=== PATIENT | female | born 1960 | race Hispanic/Latino ===

== ENCOUNTER → 2018-04-12 | Outpatient (CLI) | payer BC, MEDICARE ==
[~2018-04-12] MED LIST: ASPIRIN81 MG PO; CLONAZEPAM1 MG PO; CRESTOR20 MG PO; IMITREX50 MG PO; MOTRIN800 M1 PO; NEXIUM40 MG PO; PRAVASTATIN SOD40 MG PO; PROZAC40 MG PO; SEROQUEL50 MG PO; TIZANIDINE HCL4 M1 PO; ULTRAM50 MG PO
== END ==
LOC: MAMMO 08:52
PROVIDERS: ATTEND Internal Medicine
DX: Z12.31 Encounter for screening mammogram for malignant neoplasm of breast (principal)
CPT/HCPCS: 77067

== ENCOUNTER → 2019-04-16 | Outpatient (CLI) | payer BC ==
--- NOTE | 2019-04-16 11:40 | Diagnostic Imaging Report ---
EXAMINATION: Head CT HISTORY: Dizziness, shaking, vertigo, runny nose and headache with left-sided weakness. Carotid artery syndrome. COMPARISON: None. TECHNIQUE: Multidetector axial images were obtained without contrast from the foramen magnum to the vertex . The images were reconstructed using brain and bone algorithms. Thin section brain images were reformatted into coronal and sagittal planes. Image quality: Motion/streaking artifact limits the evaluation of the skull base and posterior cranial fossa. Dose modulation, iterative reconstruction, and/or weight based adjustment of the mA/kV was utilized to reduce the radiation dose to as low as reasonably achievable. FINDINGS: Parenchyma: 1. No abnormal densities. 2. No mass or hemorrhage. No CT evidence of acute territorial vascular insult. Extra-axial spaces:No abnormal density. No extra-axial fluid collections Brain volume: Normal for age. Ventricles: No hydrocephalus or displacement. Incidentally noted a small lipoma within the right atrial complexes, no clinical significance. Arteries: No density suggestive of thrombus. Dural sinuses: No abnormal density. Extra-axial spaces: No abnormal density. Foramen magnum: Narrowed, with partially visualized cerebellar tonsillar ectopia and fullness of the foramen magnum, compression upon the cervical medullary junction cannot be excluded. Sella: Enlarged, partially empty, mostly cystocele, which indicating patient with a spontaneous intracranial hypotension in the appropriate clinical setting Paranasal/mastoid sinuses: Partial opacification of the right sphenoid sinus, otherwise clear. Skull/Scalp: No lytic or blastic lesions. No fractures. IMPRESSION: 1. No acute intracranial abnormality. 2. 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 3. Partially empty sella turcica as detailed above. Signed by: Dr. Mckenzie Mike M.D. on 04/16/2019 11:36 AM
--- NOTE | 2019-04-30 08:43 | Diagnostic Imaging Report ---
#[id number] - MGSCRBIL #BILATERAL DIGITAL SCREENING MAMMOGRAM WITH CAD: 04/16/2019 Comparison is made to exams dated: 04/12/2018 mammogram and 05/17/2017 mammogram - [facility]. Current study contains 8 films. The tissue of both breasts is heterogeneously dense. This may lower the sensitivity of mammography. Current study was also evaluated with a Computer Aided Detection (CAD) system. Benign appearing calcifications are noted bilaterally and appear unchanged. There is benign, stable nodularity in both breasts. No significant masses, calcifications, or other findings are seen in either breast. IMPRESSION: BENIGN There is no mammographic evidence of malignancy. A 1 year screening mammogram is recommended. The patient will be notified by letter of the results. CONNOR mondragon/penrad:04/27/2019 13:48:25 Cheese Specialist: Taylor MARTINEZ(R)(Vito), [facility] letter sent: Normal Exam Mammogram BI-RADS: 2 Benign
== END ==
LOC: CT 10:15
PROVIDERS: ATTEND Internal Medicine
DX: Z12.31 Encounter for screening mammogram for malignant neoplasm of breast (principal); G45.1 Carotid artery syndrome (hemispheric)
CPT/HCPCS: 70450; 77067

== ENCOUNTER → 2019-07-13 | Outpatient (CLI) | payer BC ==
--- NOTE | 2019-07-13 13:56 | Diagnostic Imaging Report ---
Cervical spine, 7 views. History: Neck pain, right-sided with radiation to right shoulder. Discussion: The cervical spine is visualized on the lateral view from C1 through the top of T1 with the additional swimmer's view. There is normal lordotic curvature. There is no evidence of fracture, subluxation, or posterior splaying. The intervertebral disc spaces are normal. The neuroforamina are patent bilaterally. The prevertebral soft tissues are within normal limits. IMPRESSION: Normal cervical spine. Signed by: Efren Jung on 07/13/2019 1:53 PM
== END ==
LOC: RAD 11:58
PROVIDERS: ATTEND Internal Medicine
DX: M47.812 Spondylosis without myelopathy or radiculopathy, cervical region (principal)
CPT/HCPCS: 72050

== ENCOUNTER → 2019-09-10 | Outpatient (CLI) | payer BC ==
--- NOTE | 2019-09-10 08:43 | Diagnostic Imaging Report ---
History: Right-sided face jumpy. High blood pressure Comparison studies: CT head 04/16/2019 Technique: Sagittal T2; axial DWI, FLAIR, MPGR, T1, Coronal FLAIR. Intravenous contrast: None Findings: Scalp: Normal in signal . No masses . Bone marrow: Normal in signal intensity. Extra-axial: No masses, no fluid collections. Brain sulci: Appropriate for age. Ventricles: Normal in size. Subcentimeter fat the deposition at the right choroid plexus, most likely related to lipoma . No hydrocephalus . Parenchyma: No abnormal signal intensities. No masses, hemorrhage, acute or chronic vascular insults. Suprasellar region: Partial empty sella configuration Craniocervical junction: No abnormalities. Patent foramen magnum. No Chiari one malformation or tonsillar ectopia. Vessels: Normal flow-voids in the arteries and sinuses. Mucosal thickening at the left maxillary sinus, related to nonspecific inflammation IMPRESSION: 1. No acute abnormalities Signed by: DR Tom Pettit M.D. on 09/10/2019 8:40 AM
== END ==
LOC: MRI 07:10
PROVIDERS: ATTEND Internal Medicine
DX: G51.0 Bell's palsy (principal)
CPT/HCPCS: 70551

== ENCOUNTER → 2020-07-21 | Outpatient (CLI) | payer BC | LOC: MAMMO 13:39 | PROVIDERS: ATTEND Internal Medicine | DX: Z12.31 Encounter for screening mammogram for malignant neoplasm of breast (principal) | CPT/HCPCS: 77067 ==

== ENCOUNTER → 2021-05-05 | Outpatient (CLI) | payer BC | LOC: US 08:25 | PROVIDERS: ATTEND Internal Medicine | DX: R10.10 Upper abdominal pain, unspecified (principal) | CPT/HCPCS: 76700 ==

== ENCOUNTER → 2021-07-27 | Outpatient (CLI) | payer BC | LOC: MAMMO 09:07 | PROVIDERS: ATTEND Internal Medicine | DX: Z12.31 Encounter for screening mammogram for malignant neoplasm of breast (principal) | CPT/HCPCS: 77067 ==

== ENCOUNTER → 2022-11-18 | Outpatient (CLI) | payer BC | LOC: MAMMO 08:53 | PROVIDERS: ATTEND Internal Medicine | DX: N64.4 Mastodynia (principal); Z13.820 Encounter for screening for osteoporosis; M85.80 Other specified disorders of bone density and structure, unspecified site | CPT/HCPCS: 77066; 77080 ==

== ENCOUNTER 2023-03-02 03:29 | Emergency (ER) | payer BC ==
[~2023-03-02] VITALS: Ht 185.4 cm; Wt 111.6 kg
[~2023-03-02 03:29] MED LIST changes: +FAMOTIDINE20 MG PO; +LIPITOR10 MG PO; +LOSARTAN POTASS25 MG PO; +METFORMIN HCL500 MG PO; +OMEPRAZOLE40 MG PO
[2023-03-02] MEDS ORDERED: ONDANSETRON HCL INJ 2MG/ML 2ML 2 MG/ML VIAL IV STA (03:44)
[2023-03-02] MEDS ORDERED: Morphine 4mg INJECTION 4 MG/ML INJ IV STA (03:44)
[2023-03-02 03:56] LABS: CLARITY,URINE CLEAR (CLEAR); COLOR,URINE YELLOW (YELLOW); KETONES,URINE NEGATIVE (NEGATIVE); LEUKOCYTE ESTERASE ,URINE NEGATIVE (NEGATIVE); NITRITE,URINE NEGATIVE (NEGATIVE); PROTEIN,URINE DIPSTICK NEGATIVE (NEGATIVE); URINE UROBILINOGEN 0.2 mg/dL (0.2 - 1)
[2023-03-02 03:57] LABS: BASOPHILS % 0.4 % (0.0-1.0); EOSINOPHILS # (AUTO) 0.2 (0.0-0.4); HEMOGLOBIN 13.5 g/dL (12.0-16.0); LYMPHOCYTES # (AUTO) 1.7 (1.0-3.2); LYMPHOCYTES % 32.5 % (18.0-39.1); MEAN CORPUSCULAR HEMOGLOBIN 29.9 pg (28-32); MEAN CORPUSCULAR HGB CONC 33.8 g/dL (31-35); MEAN CORPUSCULAR VOLUME 88.5 fL (81-99); MONOCYTES # (AUTO) 0.4 (0.2-0.8); MONOCYTES % 7.7 % (4.4-11.3); PLATELET COUNT 121 x10e3/uL (140-360); RED BLOOD COUNT 4.52 x10e6/uL (3.6-5.1); RED CELL DISTRIBUTION WIDTH 13.2 % (11.7-14.4)
[2023-03-02 04:09] LABS: BACTERIA,URINE MODERATE /HPF; EPITHELIAL CELLS,URINE FEW /LPF; RBC,URINE 0-5 /HPF (0-5)
[2023-03-02 04:17] LABS: ALBUMIN/GLOBULIN RATIO 1.1 (0.8-2.0); ANION GAP 14.6 mmol/L (8-16); CALCIUM 9.7 mg/dL (8.4-10.2); CREATININE, SERUM 0.74 mg/dL (0.57-1.11); POTASSIUM 3.6 mmol/L (3.5-5.1)
[2023-03-02] MEDS ORDERED: IOPAMIDOL 370 MG/ML 100 ML INFUS..BTL INJ ONE (04:32)
[2023-03-02] MEDS ORDERED: FAMOTIDINE 20 MG/2 ML VIAL IV STA (05:15)
[2023-03-02] MEDS ORDERED: PROTONIX20 MG PO (05:17)
[2023-03-02] MEDS ORDERED: ULTRAM 50MG50 MG PO (05:42)
[2023-03-02 05:45] VITALS: O2SAT 98
[2023-03-02 05:51] LABS: CREATINE KINASE 49 IU/L (29-168)
== END 2023-03-02 05:55 | disposition home or self-care (01) ==
LOC: ER 03:35
DX: R10.32 Left lower quadrant pain (principal); R10.12 Left upper quadrant pain; F41.9 Anxiety disorder, unspecified; E78.5 Hyperlipidemia, unspecified; K21.9 Gastro-esophageal reflux disease without esophagitis; R94.31 Abnormal electrocardiogram [ECG] [EKG]
CPT/HCPCS: 36415; 74177; 80053; 81001; 82550; 82553; 83690; 84484; 85025; 93005; 99284; J2270; J2405; Q9967

== ENCOUNTER 2023-09-15 03:55 | Emergency (ER) | payer BC ==
[~2023-09-15] VITALS: Ht 185.4 cm; Wt 111.6 kg
[~2023-09-15 03:55] MED LIST changes: +MECLIZINE HCL12.5 MG PO; +PROTONIX20 MG PO; +ULTRAM 50MG50 MG PO
[2023-09-15] MEDS ORDERED: SODIUM CHLORIDE 0.9% 1000ML 1,000 ML IV STA (04:22)
[2023-09-15] MEDS ORDERED: ONDANSETRON HCL INJ 2MG/ML 2ML 2 MG/ML VIAL IV STA (04:22)
[2023-09-15 04:48] LABS: BASOPHILS % 0.3 % (0.0-1.0); EOSINOPHILS # (AUTO) 0.1 (0.0-0.4); EOSINOPHILS % 2.5 % (0.0-6.0); HEMATOCRIT 36.8 % (34.2-44.1); HEMOGLOBIN 12.3 g/dL (12.0-16.0); LYMPHOCYTES # (AUTO) 0.9 (1.0-3.2); LYMPHOCYTES % 25.5 % (18.0-39.1); MEAN CORPUSCULAR HEMOGLOBIN 28.9 pg (28-32); MEAN CORPUSCULAR HGB CONC 33.4 g/dL (31-35); MEAN CORPUSCULAR VOLUME 86.6 fL (81-99); MONOCYTES # (AUTO) 0.3 (0.2-0.8); MONOCYTES % 7.2 % (4.4-11.3); NEUTROPHILS # (AUTO) 2.3 (2.1-6.9); NEUTROPHILS % 64.2 % (38.7-80.0); RED BLOOD COUNT 4.25 x10e6/uL (3.6-5.1); RED CELL DISTRIBUTION WIDTH 13.4 % (11.7-14.4); WHITE BLOOD COUNT 3.61 x10e3/uL (4.8-10.8)
[2023-09-15 04:56] LABS: PLATELET COUNT 92 x10e3/uL (140-360)
[2023-09-15 05:08] LABS: ALBUMIN/GLOBULIN RATIO 1.4 (0.8-2.0); BILIRUBIN,TOTAL 0.8 mg/dL (0.2-1.2); CALCIUM 8.8 mg/dL (8.4-10.2); CREATININE, SERUM 0.78 mg/dL (0.57-1.11); TOTAL PROTEIN 6.9 g/dL (6.5-8.1)
[2023-09-15 05:14] LABS: CLARITY,URINE CLEAR (CLEAR); COLOR,URINE YELLOW (YELLOW); PH,URINE 7 (5 - 7)
[2023-09-15 05:15] LABS: BILIRUBIN,URINE NEGATIVE (NEGATIVE); GLUCOSE, URINE 500 (NEGATIVE); KETONES,URINE NEGATIVE (NEGATIVE); LEUKOCYTE ESTERASE ,URINE NEGATIVE (NEGATIVE); NITRITE,URINE NEGATIVE (NEGATIVE); PROTEIN,URINE DIPSTICK NEGATIVE (NEGATIVE); URINE UROBILINOGEN 0.2 mg/dL (0.2 - 1)
[2023-09-15 05:30] LABS: BACTERIA,URINE RARE /HPF; EPITHELIAL CELLS,URINE RARE /LPF; WBC,URINE (MAN) 0-5 /HPF (0-5)
[2023-09-15] MEDS ORDERED: PROMETHAZINE 25MG/ NS 50ML (IV) IV STA (05:47)
[2023-09-15] MEDS ORDERED: PROMETHAZINE 25MG/SOD CHL 0.9% 50 ML IV ONE (06:00)
[2023-09-15 06:59] VITALS: BP 160/84; PULSE 79; RESP 19; TEMP 98.8; O2SAT 96
[2023-09-15] MEDS ORDERED: DICYCLOMINE HCL20 MG PO (07:00)
[2023-09-15] MEDS ORDERED: PROMETHAZINE HC25 M1 PO (07:01)
[2023-09-15] MEDS ORDERED: IOPAMIDOL 370 MG/ML 100 ML INFUS..BTL INJ ONE (07:15)
== END 2023-09-15 07:11 | disposition home or self-care (01) ==
LOC: ER 04:02
DX: R10.30 Lower abdominal pain, unspecified (principal); R11.2 Nausea with vomiting, unspecified; E78.5 Hyperlipidemia, unspecified; F41.9 Anxiety disorder, unspecified; E66.01 Morbid (severe) obesity due to excess calories
CPT/HCPCS: 36415; 70450; 74177; 80053; 81001; 83690; 85025; 93005; 99284; J2405; J2550; J7030; Q9967

== ENCOUNTER → 2024-02-10 | Outpatient (REF) | payer BC, MEDICARE ==
[~2024-02-10] MED LIST changes: +DICYCLOMINE HCL20 MG PO; +PROMETHAZINE HC25 M1 PO
== END ==
LOC: MAMMO 14:09
PROVIDERS: ATTEND Internal Medicine
DX: Z12.31 Encounter for screening mammogram for malignant neoplasm of breast (principal)
CPT/HCPCS: 77067

== ENCOUNTER 2024-07-27 20:42 | Observation (INO) | payer BC, MEDICARE ==
[~2024-07-27] VITALS: Ht 154.9 cm; Wt 100.2 kg
[2024-07-27 21:23] VITALS: RESP 20; TEMP 98.6
[2024-07-27 22:45] VITALS: PULSE 83
[2024-07-27 22:48] LABS: BASOPHILS % 0.2 % (0.0-1.0); EOSINOPHILS # (AUTO) 0.1 (0.0-0.4); EOSINOPHILS % 1.6 % (0.0-6.0); HEMATOCRIT 40.6 % (34.2-44.1); HEMOGLOBIN 13.6 g/dL (12.0-16.0); LYMPHOCYTES # (AUTO) 0.9 (1.0-3.2); LYMPHOCYTES % 19.8 % (18.0-39.1); MEAN CORPUSCULAR HEMOGLOBIN 29.7 pg (28-32); MEAN CORPUSCULAR HGB CONC 33.5 g/dL (31-35); MEAN CORPUSCULAR VOLUME 88.6 fL (81-99); MONOCYTES # (AUTO) 0.3 (0.2-0.8); MONOCYTES % 7.1 % (4.4-11.3); NEUTROPHILS # (AUTO) 3.1 (2.1-6.9); NEUTROPHILS % 71.1 % (38.7-80.0); PLATELET COUNT 89 x10e3/uL (140-360); RED BLOOD COUNT 4.58 x10e6/uL (3.6-5.1); RED CELL DISTRIBUTION WIDTH 13.1 % (11.7-14.4); WHITE BLOOD COUNT 4.35 x10e3/uL (4.8-10.8)
[2024-07-27 23:07] LABS: ALBUMIN 3.7 g/dL (3.5-5.0); ANION GAP 14.8 mmol/L (8-16); CALCIUM 9.2 mg/dL (8.4-10.2); CREATININE, SERUM 0.78 mg/dL (0.57-1.11); POTASSIUM 3.8 mmol/L (3.5-5.1); TOTAL PROTEIN 7.3 g/dL (6.5-8.1)
[2024-07-27] MEDS: KETOROLAC TROMETHAMINE 30 MG/ML VIAL IV STA (23:21)
[2024-07-27] MEDS: ONDANSETRON HCL INJ 2MG/ML 2ML 2 MG/ML VIAL IV STA (23:21)
[2024-07-27] MEDS: SODIUM CHLORIDE 0.9% 1000ML 1,000 ML IV ONE (23:21)
[2024-07-27] MEDS ORDERED: IOPAMIDOL 370 MG/ML 100 ML INFUS..BTL INJ ONE (23:41)
[2024-07-28] VITALS (7 sets, daily range): BP systolic 135–159; BP diastolic 64–81; PULSE 75–80; RESP 16–20; TEMP 98.4–98.6; O2SAT 96–98
[2024-07-28 01:37] LABS: CLARITY,URINE CLEAR (CLEAR); COLOR,URINE YELLOW (YELLOW); LEUKOCYTE ESTERASE ,URINE NEGATIVE (NEGATIVE); NITRITE,URINE NEGATIVE (NEGATIVE); PH,URINE 6.5 (5 - 7)
[2024-07-28 01:38] LABS: BILIRUBIN,URINE NEGATIVE (NEGATIVE); GLUCOSE, URINE 500 (NEGATIVE); KETONES,URINE 2+ (NEGATIVE); PROTEIN,URINE DIPSTICK NEGATIVE (NEGATIVE); URINE UROBILINOGEN 0.2 mg/dL (0.2 - 1)
[2024-07-28 01:39] LABS: BACTERIA,URINE MODERATE /HPF; EPITHELIAL CELLS,URINE MODERATE /LPF
[2024-07-28] MEDS ORDERED: HALOPERIDOL LACTATE 5 MG/ML VIAL IV PRN (02:00)
[2024-07-28] MEDS ORDERED: DEXTROSE 50% SYRINGE 50 ML IV PRN (02:00)
[2024-07-28] MEDS ORDERED: ONDANSETRON HCL INJ 2MG/ML 2ML 2 MG/ML VIAL IV PRN (02:00)
[2024-07-28] MEDS: SODIUM CHLORIDE 0.9% 1000ML 1,000 ML IV SCH (02:28)
[2024-07-28] MEDS: HALOPERIDOL LACTATE 5 MG/ML VIAL IV ONE (02:28)
[2024-07-28] MEDS ORDERED: MELATONIN 3 MG TAB PO PRN (04:00)
[2024-07-28] MEDS ORDERED: DICYCLOMINE HCL 20 MG TAB PO PRN (04:00)
[2024-07-28] MEDS ORDERED: MECLIZINE HCL 12.5 MG TAB PO PRN (04:00)
[2024-07-28] MEDS ORDERED: ACETAMINOPHEN 325 MG TAB PO PRN (04:00)
[2024-07-28] MEDS: FLUOXETINE HCL 20 MG CAP PO SCH (08:45)
[2024-07-28] MEDS: ASPIRIN 81 MG CHEW TAB PO SCH (08:45)
[2024-07-28] MEDS: CLONAZEPAM 1 MG TAB PO SCH (08:45)
[2024-07-28] MEDS: MULTIVITAMINS/MINERALS TAB PO SCH (08:45)
[2024-07-28] MEDS: LOSARTAN POTASSIUM 25 MG TAB PO SCH (08:46)
[2024-07-28] MEDS: INSULIN REGULAR, HUMAN 100 UNIT/1 ML SQ SCH (08:48)
[2024-07-28] MEDS ORDERED: OMEPRAZOLE40 MG PO (13:03)
[2024-07-28] MEDS ORDERED: ATORVASTATIN 10 MG TAB PO SCH (21:00)
== END 2024-07-28 13:35 | disposition home or self-care (01) ==
LOC: ER 20:50 → ERHOLD 07-28 02:02 → MED/SURG3 07-28 02:57
PROVIDERS: ADMIT Internal Medicine Critical Care Medicine; ATTEND Internal Medicine Critical Care Medicine
DX: R10.9 Unspecified abdominal pain (principal); R11.2 Nausea with vomiting, unspecified; I85.00 Esophageal varices without bleeding; D69.6 Thrombocytopenia, unspecified; K76.9 Liver disease, unspecified; K57.30 Diverticulosis of large intestine without perforation or abscess without bleeding; I10 Essential (primary) hypertension; E78.5 Hyperlipidemia, unspecified; E11.9 Type 2 diabetes mellitus without complications; Z79.84 Long term (current) use of oral hypoglycemic drugs; E66.01 Morbid (severe) obesity due to excess calories; Z68.41 Body mass index [BMI] 40.0-44.9, adult; Z90.49 Acquired absence of other specified parts of digestive tract; Z90.710 Acquired absence of both cervix and uterus; Z79.82 Long term (current) use of aspirin; Z79.899 Other long term (current) drug therapy
CPT/HCPCS: 36415 ×2; 74177; 80053; 81001; 82948; 83690; 85025; 93005; 94799; 99284; G0378; J1630; J1885; J2405; J2470 ×2; J7030 ×2; Q9967

== ENCOUNTER 2024-10-11 01:59 | Emergency (ER) | payer BC, MEDICARE ==
[~2024-10-11] VITALS: Ht 154.9 cm; Wt 100.2 kg
[2024-10-11 02:07] VITALS: TEMP 98.3
[2024-10-11] MEDS ORDERED: ONDANSETRON HCL INJ 2MG/ML 2ML 2 MG/ML VIAL ONE (02:12)
[2024-10-11] MEDS: ONDANSETRON HCL INJ 2MG/ML 2ML 2 MG/ML VIAL IV STA (02:16)
[2024-10-11 02:24] LABS: BASOPHILS % 0.4 % (0.0-1.0); EOSINOPHILS # (AUTO) 0.2 (0.0-0.4); EOSINOPHILS % 3.2 % (0.0-6.0); HEMATOCRIT 40.4 % (34.2-44.1); HEMOGLOBIN 13.1 g/dL (12.0-16.0); LYMPHOCYTES # (AUTO) 1.6 (1.0-3.2); LYMPHOCYTES % 34.3 % (18.0-39.1); MEAN CORPUSCULAR HGB CONC 32.4 g/dL (31-35); MEAN CORPUSCULAR VOLUME 92.7 fL (81-99); MONOCYTES # (AUTO) 0.5 (0.2-0.8); MONOCYTES % 9.5 % (4.4-11.3); NEUTROPHILS # (AUTO) 2.5 (2.1-6.9); PLATELET COUNT 117 x10e3/uL (140-360); RED BLOOD COUNT 4.36 x10e6/uL (3.6-5.1); RED CELL DISTRIBUTION WIDTH 13.5 % (11.7-14.4); WHITE BLOOD COUNT 4.75 x10e3/uL (4.8-10.8)
[2024-10-11] MEDS: MECLIZINE HCL 12.5 MG TAB PO ONE (02:45)
[2024-10-11 02:52] LABS: ALBUMIN 3.8 g/dL (3.5-5.0); ALBUMIN/GLOBULIN RATIO 1.1 (0.8-2.0); ANION GAP 16.9 mmol/L (8-16); BILIRUBIN,TOTAL 0.4 mg/dL (0.2-1.2); CREATININE, SERUM 0.78 mg/dL (0.57-1.11); LIPASE 68 U/L (8-78); POTASSIUM 3.9 mmol/L (3.5-5.1); TOTAL PROTEIN 7.4 g/dL (6.5-8.1)
[2024-10-11 03:25] LABS: TROPONIN I < 0.001 ng/mL (0-0.300)
[2024-10-11 03:29] LABS: BILIRUBIN,URINE NEGATIVE (NEGATIVE); CLARITY,URINE CLEAR (CLEAR); COLOR,URINE YELLOW (YELLOW); GLUCOSE, URINE >=1000 (NEGATIVE); KETONES,URINE NEGATIVE (NEGATIVE); LEUKOCYTE ESTERASE ,URINE TRACE (NEGATIVE); NITRITE,URINE NEGATIVE (NEGATIVE); PH,URINE 6 (5 - 7); PROTEIN,URINE DIPSTICK NEGATIVE (NEGATIVE); URINE UROBILINOGEN 0.2 mg/dL (0.2 - 1)
[2024-10-11 03:30] LABS: BACTERIA,URINE MODERATE /HPF; EPITHELIAL CELLS,URINE MODERATE /LPF; WBC,URINE (MAN) 0-5 /HPF (0-5)
[2024-10-11] MEDS ORDERED: ONDANSETRON ODT4 MG SL (03:43)
[2024-10-11] MEDS ORDERED: ANTIVERT25 M1 PO (03:43)
[2024-10-11 03:55] VITALS: PULSE 69; RESP 16; O2SAT 98
== END 2024-10-11 04:05 | disposition home or self-care (01) ==
LOC: ER 02:05
DX: R42 Dizziness and giddiness (principal); R11.2 Nausea with vomiting, unspecified; I10 Essential (primary) hypertension; E11.65 Type 2 diabetes mellitus with hyperglycemia; E78.5 Hyperlipidemia, unspecified; K21.9 Gastro-esophageal reflux disease without esophagitis; M19.09 Primary osteoarthritis, other specified site; F41.9 Anxiety disorder, unspecified; F32.A Depression, unspecified; E66.01 Morbid (severe) obesity due to excess calories; R94.31 Abnormal electrocardiogram [ECG] [EKG]
CPT/HCPCS: 36415; 80053; 81001; 83690; 84484; 85025; 93005; 99283; J2405; J8597

== ENCOUNTER 2025-01-07 04:40 | Emergency (ER) | payer MEDICARE ==
[~2025-01-07] VITALS: Ht 154.9 cm; Wt 100.2 kg
[2025-01-07 04:40] VITALS: PULSE 85; RESP 20; TEMP 98.4
[~2025-01-07 04:40] MED LIST changes: +ANTIVERT25 M1 PO; +ONDANSETRON ODT4 MG SL
[2025-01-07 05:07] LABS: BASOPHILS % 0.7 % (0.0-1.0); EOSINOPHILS # (AUTO) 0.1 (0.0-0.4); EOSINOPHILS % 2.2 % (0.0-6.0); HEMATOCRIT 39.1 % (34.2-44.1); HEMOGLOBIN 13.5 g/dL (12.0-16.0); LYMPHOCYTES # (AUTO) 1.5 (1.0-3.2); LYMPHOCYTES % 33.8 % (18.0-39.1); MEAN CORPUSCULAR HEMOGLOBIN 29.8 pg (28-32); MEAN CORPUSCULAR HGB CONC 34.5 g/dL (31-35); MEAN CORPUSCULAR VOLUME 86.3 fL (81-99); MONOCYTES # (AUTO) 0.3 (0.2-0.8); MONOCYTES % 7.2 % (4.4-11.3); NEUTROPHILS # (AUTO) 2.6 (2.1-6.9); NEUTROPHILS % 55.9 % (38.7-80.0); PLATELET COUNT 117 x10e3/uL (140-360); RED BLOOD COUNT 4.53 x10e6/uL (3.6-5.1); RED CELL DISTRIBUTION WIDTH 13.4 % (11.7-14.4); WHITE BLOOD COUNT 4.56 x10e3/uL (4.8-10.8)
[2025-01-07] MEDS: ONDANSETRON HCL INJ 2MG/ML 2ML 2 MG/ML VIAL IV STA (05:08)
[2025-01-07] MEDS: MECLIZINE HCL 12.5 MG TAB PO ONE (05:09)
[2025-01-07] MEDS: LORAZEPAM INJ 2 MG/ML VIAL IV ONE (05:09)
[2025-01-07 05:28] LABS: ALBUMIN/GLOBULIN RATIO 1.1 (0.8-2.0); ANION GAP 16.7 mmol/L (8-16); BILIRUBIN,TOTAL 0.5 mg/dL (0.2-1.2); CALCIUM 9.3 mg/dL (8.4-10.2); CREATININE, SERUM 0.76 mg/dL (0.57-1.11); POTASSIUM 3.7 mmol/L (3.5-5.1); TOTAL PROTEIN 7.8 g/dL (6.5-8.1)
[2025-01-07 05:58] VITALS: BP 130/65; O2SAT 100
== END 2025-01-07 05:57 | disposition home or self-care (01) ==
LOC: ER 04:52
DX: R42 Dizziness and giddiness (principal); R11.2 Nausea with vomiting, unspecified; I10 Essential (primary) hypertension; E11.65 Type 2 diabetes mellitus with hyperglycemia; E78.5 Hyperlipidemia, unspecified; K21.9 Gastro-esophageal reflux disease without esophagitis; E66.01 Morbid (severe) obesity due to excess calories; F41.9 Anxiety disorder, unspecified; F32.A Depression, unspecified; R94.31 Abnormal electrocardiogram [ECG] [EKG]
CPT/HCPCS: 36415; 80053; 84484; 85025; 93005; 99283; J2060; J2405; J8597

== ENCOUNTER 2025-01-20 04:12 | Emergency (ER) | payer MEDICARE ==
[~2025-01-20] VITALS: Ht 154.9 cm; Wt 100.2 kg
[2025-01-20 04:15] VITALS: TEMP 97.8
[2025-01-20] MEDS ORDERED: MECLIZINE HCL 12.5 MG TAB ONE (04:22)
[2025-01-20] MEDS ORDERED: ONDANSETRON HCL INJ 2MG/ML 2ML 2 MG/ML VIAL ONE (04:22)
[2025-01-20] MEDS ORDERED: LORAZEPAM INJ 2 MG/ML VIAL ONE (04:22)
[2025-01-20 04:33] VITALS: PULSE 75; RESP 17
[2025-01-20] MEDS: ONDANSETRON HCL INJ 2MG/ML 2ML 2 MG/ML VIAL IV STA (04:34)
[2025-01-20] MEDS: MECLIZINE HCL 12.5 MG TAB PO ONE (04:34)
[2025-01-20] MEDS: LORAZEPAM INJ 2 MG/ML VIAL IV ONE (04:34)
[2025-01-20 05:33] VITALS: BP 120/56; PULSE 66; RESP 19; TEMP 98; O2SAT 96
[2025-01-20] MEDS ORDERED: MECLIZINE HCL 12.5 MG TAB PO SCH (21:00)
== END 2025-01-20 05:35 | disposition home or self-care (01) ==
LOC: ER 04:18
DX: R51.9 Headache, unspecified (principal); R11.2 Nausea with vomiting, unspecified; R42 Dizziness and giddiness; I10 Essential (primary) hypertension; E11.9 Type 2 diabetes mellitus without complications; E78.5 Hyperlipidemia, unspecified; K21.9 Gastro-esophageal reflux disease without esophagitis; F41.9 Anxiety disorder, unspecified; F32.A Depression, unspecified; E66.01 Morbid (severe) obesity due to excess calories
CPT/HCPCS: 99283; J2060; J2405; J8597

== ENCOUNTER 2025-01-28 02:37 | Emergency (ER) | payer MEDICARE ==
[~2025-01-28] VITALS: Ht 154.9 cm; Wt 100.2 kg
[2025-01-28] MEDS ORDERED: LORAZEPAM INJ 2 MG/ML VIAL IV STA (02:41)
[2025-01-28 02:50] VITALS: PULSE 81; RESP 20; TEMP 98.1
[2025-01-28 03:04] LABS: BASOPHILS % 0.4 % (0.0-1.0); EOSINOPHILS # (AUTO) 0.1 (0.0-0.4); EOSINOPHILS % 2.6 % (0.0-6.0); HEMOGLOBIN 13.4 g/dL (12.0-16.0); LYMPHOCYTES # (AUTO) 1.4 (1.0-3.2); LYMPHOCYTES % 27.4 % (18.0-39.1); MEAN CORPUSCULAR HEMOGLOBIN 29.8 pg (28-32); MEAN CORPUSCULAR HGB CONC 34.4 g/dL (31-35); MEAN CORPUSCULAR VOLUME 86.7 fL (81-99); MONOCYTES # (AUTO) 0.4 (0.2-0.8); MONOCYTES % 8.3 % (4.4-11.3); NEUTROPHILS # (AUTO) 3.1 (2.1-6.9); NEUTROPHILS % 60.9 % (38.7-80.0); PLATELET COUNT 104 x10e3/uL (140-360); RED CELL DISTRIBUTION WIDTH 13.5 % (11.7-14.4); WHITE BLOOD COUNT 5.04 x10e3/uL (4.8-10.8)
[2025-01-28 03:25] LABS: ALBUMIN 3.8 g/dL (3.5-5.0); ALBUMIN/GLOBULIN RATIO 1.1 (0.8-2.0); ANION GAP 17.8 mmol/L (8-16); BILIRUBIN,TOTAL 0.6 mg/dL (0.2-1.2); CALCIUM 9.3 mg/dL (8.4-10.2); CREATININE, SERUM 0.74 mg/dL (0.57-1.11); POTASSIUM 3.8 mmol/L (3.5-5.1); TOTAL PROTEIN 7.3 g/dL (6.5-8.1)
[2025-01-28] MEDS: SODIUM CHLORIDE 0.9% 1000ML 1,000 ML IV STA (04:13)
[2025-01-28] MEDS: MECLIZINE HCL 12.5 MG TAB PO STA (04:14)
[2025-01-28] MEDS: ONDANSETRON HCL INJ 2MG/ML 2ML 2 MG/ML VIAL IV STA (04:14)
[2025-01-28] MEDS ORDERED: VALIUM5 MG PO (05:07)
[2025-01-28] MEDS: ACETAMINOPHEN 325 MG TAB PO STA (05:19)
[2025-01-28 05:22] VITALS: BP 138/71; O2SAT 99
== END 2025-01-28 05:26 | disposition home or self-care (01) ==
LOC: ER 02:41
DX: R42 Dizziness and giddiness (principal); R11.2 Nausea with vomiting, unspecified; I10 Essential (primary) hypertension; E11.65 Type 2 diabetes mellitus with hyperglycemia; E78.5 Hyperlipidemia, unspecified; K21.9 Gastro-esophageal reflux disease without esophagitis; F41.9 Anxiety disorder, unspecified; F32.A Depression, unspecified; E66.01 Morbid (severe) obesity due to excess calories; R94.31 Abnormal electrocardiogram [ECG] [EKG]
CPT/HCPCS: 36415; 80053; 85025; 93005; 99284; J2405; J7030; J8597

== ENCOUNTER → 2025-04-24 | Outpatient (REF) | payer MEDICARE ==
[~2025-04-24] MED LIST changes: +VALIUM5 MG PO
== END ==
LOC: MAMMO 10:08
PROVIDERS: ATTEND Family Medicine
DX: Z12.31 Encounter for screening mammogram for malignant neoplasm of breast (principal)
CPT/HCPCS: 77067

== ENCOUNTER 2025-06-24 04:34 | Emergency (ER) | payer MEDICARE ==
[~2025-06-24] VITALS: Ht 154.9 cm; Wt 100.2 kg
[2025-06-24] MEDS: SODIUM CHLORIDE 0.9% 1000ML 1,000 ML IV STA (05:02)
[2025-06-24] MEDS: ONDANSETRON HCL INJ 2MG/ML 2ML 2 MG/ML VIAL IV STA (05:02)
[2025-06-24 05:14] LABS: BASOPHILS % 0.4 % (0.0-1.0); EOSINOPHILS % 2.4 % (0.0-6.0); LYMPHOCYTES % 24.5 % (18.0-39.1); MONOCYTES % 7.7 % (4.4-11.3); NEUTROPHILS % 64.6 % (38.7-80.0); RED CELL DISTRIBUTION WIDTH 13.5 % (11.7-14.4)
[2025-06-24] MEDS: DIAZEPAM INJ 5 MG/ML 2 ML IV ONE (05:20)
[2025-06-24 05:29] LABS: EST GLOMERULAR FILTRATION RATE 101.0 ML/MIN (>=60)
[2025-06-24 05:30] VITALS: PULSE 82; RESP 19; TEMP 98.8
[2025-06-24] MEDS ORDERED: VALIUM5 MG PO (05:52)
[2025-06-24 06:25] VITALS: BP 121/58; PULSE 82; RESP 19; TEMP 98.8; O2SAT 95
== END 2025-06-24 06:05 | disposition home or self-care (01) ==
LOC: ER 04:39
DX: R11.2 Nausea with vomiting, unspecified (principal); R42 Dizziness and giddiness; F41.9 Anxiety disorder, unspecified; I10 Essential (primary) hypertension; E11.65 Type 2 diabetes mellitus with hyperglycemia; E78.5 Hyperlipidemia, unspecified; K21.9 Gastro-esophageal reflux disease without esophagitis; F32.A Depression, unspecified; E66.01 Morbid (severe) obesity due to excess calories
CPT/HCPCS: 36415; 71045; 80053; 82550; 83690; 83880; 84484; 85025; 93005; 99284; J2405; J3360; J7030